=== PATIENT | male | born 1965 | race Caucasian/White ===

== ENCOUNTER 2023-10-29 15:21 | Emergency (ER) | payer BC ==
[2023-10-29] MEDS: Nitroglycerin 0.4 MG Tab.SL SL PRN (15:54)
[2023-10-29] MEDS: Aspirin 81 MG Tab.Chew PO ONE (15:55)
[2023-10-29] MEDS: Ondansetron 4 MG/2 ML SDV IVPUSH ONE ×2 (15:57→21:03)
[2023-10-29] MEDS: Sodium Chloride 0.9% 1,000 ML IV SCH (15:58)
[2023-10-29 16:08] LABS: BASOPHILS ABSOLUTE AUTO 0.1 K/mm3 (0.0-0.2); EOSINOPHILS ABSOLUTE AUTO 0.5 K/mm3 (0.0-0.4); EOSINOPHILS PERCENT AUTO 5.1 % (0.0-6.0); HEMATOCRIT 41.2 % (42.0-52.0); IMMATURE GRAN ABSOLUTE AUTO 0.06 K/mm3 (0.00-0.05); IMMATURE GRAN PERCENT AUTO 0.6 % (0.0-0.4); LYMPHOCYTES ABSOLUTE AUTO 2.3 K/mm3 (1.0-4.8); LYMPHOCYTES PERCENT AUTO 22.3 % (24.0-44.0); MEAN CORPUSCULAR HEMOGLOBIN 27.5 pg (28.0-32.0); MEAN CORPUSCULAR VOLUME 80.9 fl (83.0-99.0); MEAN PLATELET VOLUME 11.4 fl (9.4-12.4); MONOCYTES ABSOLUTE AUTO 0.6 K/mm3 (0.0-0.8); MONOCYTES PERCENT AUTO 5.8 % (0.0-8.0); NEUTROPHILS ABSOLUTE AUTO 6.8 K/mm3 (1.8-7.7); NEUTROPHILS PERCENT AUTO 65.2 % (41.0-71.0); PLATELET COUNT,PLT 227 K/mm3 (150-400); RED BLOOD CELL COUNT 5.09 M/mm3 (4.52-5.90); WHITE BLOOD CELL COUNT,WBC 10.37 K/mm3 (3.9-11.3)
[2023-10-29 16:40] LABS: ALBUMIN 3.7 g/dl (3.4-5.0); ANION GAP 15.9 (5-15); BILIRUBIN TOTAL 0.4 mg/dL (0.2-1.0); BUN/CREATININE RATIO 18.3 (14-18); CALCIUM 9.1 mg/dL (8.5-10.1); CREATININE 1.2 mg/dL (0.7-1.3); EST CRCL DRUG DOSING (CG) 69.28 mL/min; POTASSIUM,K 3.9 mEq/L (3.5-5.1); PROTEIN TOTAL,TP 7.4 g/dl (6.4-8.2)
[2023-10-29] MEDS ORDERED: Sodium Chloride 0.9% 500 ML IV SCH (20:15)
[2023-10-29] MEDS ORDERED: Heparin Sodium/D5W 25,000 UNITS/500 ML BAG IV SCH (20:45)
[2023-10-29 20:49] LABS: INR 0.98; PROTHROMBIN TIME 10.5 SECONDS (9.7-12.0)
[2023-10-29] MEDS: Morphine 2 MG/ML SYRINGE IVPUSH ONE (21:03)
[2023-10-29] MEDS: Nitroglycerin/D5W 25 MG/250 ML BOTTLE IV SCH (21:03)
[2023-10-29] MEDS: Heparin Sodium 5,000 Units/ML Vial IVPUSH ONE (21:03)
[2023-10-29] MEDS: Tenecteplase 50 MG Kit IV ONE (21:04)
== END 2023-10-29 22:08 ==
LOC: JD.ED 15:21
DX: I21.3 ST elevation (STEMI) myocardial infarction of unspecified site (principal); E11.9 Type 2 diabetes mellitus without complications; F17.210 Nicotine dependence, cigarettes, uncomplicated
CPT/HCPCS: 36415; 71046; 73030; 80053; 83880; 84484; 85025; 85379; 85610; 93005; 96365; 96368; 96375; 96376; 99285; A9270; J1644; J2270; J2305; J2405; J3101; J7030; 93010